=== PATIENT | female | born 1960 | race Caucasian/White ===

== ENCOUNTER 2018-01-21 18:37 | Emergency (ER) | payer BC ==
[2018-01-21 18:46] VITALS: TEMP 98.9
[2018-01-21 19:06] LABS: BASOPHILS % (AUTO) 1 % (0-3); EOSINOPHILS % (AUTO) 2 % (0-9); HEMATOCRIT 47 % (35-47); MEAN CORPUSCULAR HGB CONC 34.7 gm/dl (32.0-36.0); MEAN CORPUSCULAR VOLUME 90 fL (81-99); MONOCYTES % (AUTO) 4.8 % (0-12); NEUTROPHILS % (AUTO) 84.1 % (37-80)
[2018-01-21 19:23] LABS: BLOOD UREA NITROGEN 22 mg/dl (7-18); CREATININE 1.13 mg/dl (0.60-1.00); GLOM FILT RATE 50 mL/min (>60); GLUCOSE 142 mg/dl (74-106); POTASSIUM 4.3 mMol/L (3.5-5.1); SODIUM 135 mMol/L (136-145)
[2018-01-21] MEDS ORDERED: APAP/OXYCODONE 325/5 TAB PO ONE ×2 (19:43→19:47)
[2018-01-21] MEDS ORDERED: APAP/OXYCODONE 325/5 TAB ONE (19:48)
[2018-01-21] MEDS ORDERED: AZITHROMYCIN 250 MG TAB PO ONE (20:07)
[2018-01-21 20:18] VITALS: PULSE 71; O2SAT 95
[2018-01-21] MEDS ORDERED: AZITHROMYCIN 250 MG TAB ONE (20:19)
[2018-01-21 20:26] VITALS: BP 158/100
[2018-01-22 01:11] VITALS: RESP 18
== END 2018-01-21 20:24 | disposition home or self-care (01) ==
LOC: ED 18:37
DX: S22.32XA Fracture of one rib, left side, initial encounter for closed fracture (principal)
CPT/HCPCS: 36415; 71101; 80048; 84484; 85025; 85610; 99283; A9270-GY

== ENCOUNTER 2018-01-27 11:21 | Emergency (ER) | payer BC ==
[2018-01-27 11:31] VITALS: RESP 20
[2018-01-27] MEDS: SODIUM CHLORIDE 0.9% FLUSH 10 ML SOL IV PRN ×2 (12:00→13:52)
[2018-01-27] MEDS ORDERED: ONDANSETRON HCL 4 MG/2 ML SOL IV ONE (12:03)
[2018-01-27] MEDS ORDERED: MORPHINE SULFATE 10 MG/ML SOL IV ONE ×2 (12:03→13:47)
[2018-01-27] MEDS ORDERED: ONDANSETRON HCL 4 MG/2 ML SOL ONE (12:04)
[2018-01-27] MEDS ORDERED: MORPHINE SULFATE 10 MG/ML SOL ONE ×2 (12:04→13:48)
[2018-01-27 12:24] VITALS: TEMP 98.4; O2SAT 95
[2018-01-27 12:37] LABS: BASOPHILS % (AUTO) 1 % (0-3); EOSINOPHILS % (AUTO) 3 % (0-9); HEMATOCRIT 32 % (35-47); HEMOGLOBIN 11.4 gm/dl (12.0-15.5); LYMPHOCYTES % (AUTO) 11.6 % (10-50); MEAN CORPUSCULAR HEMOGLOBIN 32.7 pg (27.0-32.0); MEAN CORPUSCULAR VOLUME 91 fL (81-99); MONOCYTES % (AUTO) 7.3 % (0-12); NEUTROPHILS % (AUTO) 77.9 % (37-80)
[2018-01-27 13:29] VITALS: BP 120/78; PULSE 70
== END 2018-01-27 13:53 | disposition short-term general hospital (02) ==
LOC: ED 11:21
DX: S22.42XA Multiple fractures of ribs, left side, initial encounter for closed fracture (principal); S27.1XXA Traumatic hemothorax, initial encounter; J20.9 Acute bronchitis, unspecified
CPT/HCPCS: 71260; 85025; 96374; 96375; 99285; 99291; J2270; J2405; Q9967